=== PATIENT | female | born 1985 | race Caucasian/White ===

== ENCOUNTER 2017-06-06 18:04 | Emergency (ER) | payer OTHER ==
[2017-06-06 18:18] VITALS: BP 119/82; PULSE 70; RESP 18; TEMP 98.2; O2SAT 97
== END 2017-06-06 18:30 | disposition home or self-care (01) ==
LOC: ED 18:04
DX: K05.10 Chronic gingivitis, plaque induced (principal)
CPT/HCPCS: 99282

== ENCOUNTER 2017-06-07 11:28 | Emergency (ER) | payer OTHER ==
[2017-06-07 11:40] VITALS: BP 115/67; PULSE 67; RESP 24; TEMP 97.1; O2SAT 98
[2017-06-07] MEDS ORDERED: KETOROLAC TROMETHAMINE 30 MG/ML SOL IM ONE (11:46)
[2017-06-07] MEDS ORDERED: KETOROLAC TROMETHAMINE 30 MG/ML SOL ONE (11:47)
== END 2017-06-07 12:40 | disposition home or self-care (01) ==
LOC: ED 11:28
DX: K05.10 Chronic gingivitis, plaque induced (principal)
CPT/HCPCS: 96372; 99282; J1885

== ENCOUNTER 2019-01-15 23:07 | Emergency (ER) | payer OTHER ==
[2019-01-15 23:07] VITALS: O2SAT 98
== END 2019-01-16 00:10 | disposition left against medical advice (07) | DRG 951 ==
LOC: ED 23:07
DX: Z53.21 Procedure and treatment not carried out due to patient leaving prior to being seen by health care provider (principal)